=== PATIENT | female | born 1960 | race Caucasian/White ===

== ENCOUNTER → 2017-02-17 | Outpatient (CLI) | payer BC ==
--- NOTE | 2017-02-18 13:48 | MAMMOGRAPHY REPORT ---
BILATERAL DIGITAL SCREENING MAMMOGRAM TOMOSYNTHESIS WITH CAD: 02/17/2017 CLINICAL HISTORY: Asymptomatic. Personal history of breast cancer. TECHNIQUE: Breast tomosynthesis in addition to standard 2D mammography was performed. Current study was also evaluated with a Computer Aided Detection (CAD) system. COMPARISON: Comparison is made to exams dated: 02/06/2015 mammogram, 02/01/2014 mammogram, 08/09/2013 m ammogram, 02/01/2013 mammogram, 07/30/2012 mammogram, and 01/20/2012 mammogram - [facility] nter. BREAST COMPOSITION: The tissue of both breasts is heterogeneously dense, which may obscure small mas ses. FINDINGS: There is evidence of prior surgery in both breasts, with benign coarse and dystrophic calci fications seen bilaterally. No suspicious mass, architectural distortion or cluster of suspicious mi crocalcifications is seen. IMPRESSION: ACR BI-RADS CATEGORY 1: NEGATIVE There is no mammographic evidence of malignancy. A 1 year screening mammogram is recommended. The pa tient will receive written notification of the results. Approximately 10% of breast cancers are not detected with mammography. A negative mammographic report should not delay biopsy if a clinically suggestive mass is present. Sarah Buckley M.D. ay/:02/17/2017 17:01:58 [employer] Operator: Nash CEDILLO(Cb)(M), [facility] letter sent: Normal 1/2 BI-RADS Code: ACR BI-RADS Category 1: Negative
== END | disposition home or self-care (01) ==
LOC: C.MAMM 15:07
PROVIDERS: ATTEND Surgery
DX: Z12.31 Encounter for screening mammogram for malignant neoplasm of breast (principal)

== ENCOUNTER → 2018-01-08 | Outpatient (CLI) | payer BC ==
[2018-01-08 12:52] LABS: BASO % 0.7 %; BASO ABS # 0.03 K/uL (0-0.2); EOS % 6.7 %; EOS ABS # 0.29 K/uL (0-0.5); HEMATOCRIT 41.7 % (37-47); HEMOGLOBIN 14.2 g/dL (12.0-16.0); LYMPH % 29.7 %; LYMPH ABS # 1.28 K/uL (1.2-3.4); MEAN CELL VOLUME 91.6 fL (80-100); MEAN CORPUSCULAR HEMOGLOBIN 31.2 pg (25-34); MEAN CORPUSCULAR HGB CONC 34.1 g/dl (32-36); MEAN PLATELET VOLUME 10.4 fL (7.4-10.4); MONO % 10.4 %; MONO ABS # 0.45 K/uL (0.11-0.59); NEUT % 52.5 %; NEUT ABS # 2.26 K/uL (1.4-6.5); PLATELET COUNT 266 K/uL (130-400); RED CELL DISTRIBUTION WIDTH CV 13.8 % (11.5-14.5); RED CELL DISTRIBUTION WIDTH SD 45.9 fL (36.4-46.3); WHITE BLOOD COUNT 4.31 K/uL (4.8-10.8)
[2018-01-08 13:37] LABS: ALBUMIN 4.3 gm/dl (3.4-5.0); ALKALINE PHOSPHATASE 67 U/L (45-117); ALT/SGPT 38 U/L (12-78); AST/SGOT 23 U/L (15-37); BLOOD UREA NITROGEN 15 mg/dl (7-18); CALCIUM 9.4 mg/dl (8.5-10.1); CARBON DIOXIDE 29 mmol/L (21-32); CHOLESTEROL 237 mg/dl (0-200); CREATININE 0.86 mg/dl (0.60-1.20); GLUCOSE 97 mg/dl (70-99); LDL CHOLESTEROL CALCULATED 164 mg/dl; POTASSIUM 4.1 mmol/L (3.5-5.1); SODIUM 137 mmol/L (136-145)
== END | disposition home or self-care (01) ==
LOC: C.LABMFLN 10:50
PROVIDERS: ATTEND Family Medicine
DX: E78.5 Hyperlipidemia, unspecified (principal)

== ENCOUNTER → 2018-01-12 | Outpatient (CLI) | payer BC | END | disposition home or self-care (01) | LOC: C.PAPS 18:50 | PROVIDERS: ATTEND Family Medicine | DX: Z01.419 Encounter for gynecological examination (general) (routine) without abnormal findings (principal) ==

== ENCOUNTER → 2018-01-14 | Outpatient (CLI) | payer BC ==
--- NOTE | 2018-01-14 15:48 | DIAGNOSTIC IMAGING REPORT ---
TRANSVAG-FEMALE PELVIS HISTORY: 57 years-old Female R14.0 Abdominal [id number] acute abdominal bloating in a postmenopausal patient. COMPARISON: None available TECHNIQUE: Multiple real-time significant images of the deep pelvic structures were obtained transabdominally and transvaginally assessing grayscale appearance and color and spectral flow FINDINGS: TRANSABDOMINAL: Retroflexed uterus measures 5.9 x 2.0 x 3.5 cm and is unremarkable. Endometrium is within normal limits for patient age, 0.3 cm. No myometrial mass lesions identified. Right ovary measures 1.7 x 1.3 x 1.4 cm and demonstrates arterial inflow. No suspicious right adnexal mass lesions. Left ovary is surgically absent. No significant free pelvic fluid. IMPRESSION: 1. Unremarkable sonographic appearance of the uterus, endometrium and right ovary. 2. Prior left oophorectomy. The above report was generated using voice recognition software. It may contain grammatical, syntax or spelling errors. Electronically signed by: Dmitry Badillo M.D. 01/14/2018 3:47 PM Dictated Date/Time: 01/14/2018 3:44 PM
== END | disposition home or self-care (01) ==
LOC: C.ULTR 14:44
PROVIDERS: ATTEND Family Medicine
DX: R14.0 Abdominal distension (gaseous) (principal)